=== PATIENT | male | born 1990 | race Caucasian/White ===

== ENCOUNTER 2016-08-27 09:03 | Emergency (ER) | payer SELFPAY ==
[~2016-08-27] VITALS: Ht 185.4 cm; Wt 80.0 kg
[~2016-08-27 09:03] MED LIST: BACTRIM DS1 TAB PO; DONNATA1 OR; DOXYCYCL HYC100 M4 PO; FLEXERIL PO; KEFLEX500 MG PO; LORTAB 10 PO; LORTAB 10-325 M1 TAB PO; LORTAB 5/3255 MG PO; MOTRIN800 MG PO; MULTIVITAM10; NO MEDS; PERCOCET 5/325M1 TAB PO; ULTRAM50 M1 PO; ZOFRAN ODT4 MG PO
[2016-08-27] MEDS ORDERED: TRAMADOL HYDROC50 MG PO (10:13)
[2016-08-27] MEDS ORDERED: MOTRIN800 MG PO (10:13)
[2016-08-27 10:17] VITALS: BP 147/89
== END 2016-08-27 10:26 | disposition home or self-care (01) | DRG 914 ==
LOC: ED 09:03
DX: S46.391A Other injury of muscle, fascia and tendon of triceps, right arm, initial encounter (principal); R22.31 Localized swelling, mass and lump, right upper limb; S50.01XA Contusion of right elbow, initial encounter; W22.8XXA Striking against or struck by other objects, initial encounter; Y93.89 Activity, other specified; Y92.89 Other specified places as the place of occurrence of the external cause

== ENCOUNTER 2016-12-12 09:46 | Emergency (ER) | payer SELFPAY ==
[~2016-12-12] VITALS: Ht 185.4 cm; Wt 94.8 kg
[~2016-12-12 09:46] MED LIST changes: +TRAMADOL HYDROC50 MG PO
[2016-12-12] MEDS ORDERED: MULTIVITAMI1 PO (10:04)
[2016-12-12 10:42] LABS: HEMATOCRIT 43.8 % (39.0-50.0); HEMOGLOBIN 14.9 g/dl (14.0-18.0); IMMATURE GRANULOCYTES 0.1 % (0.0-1.0); MEAN CELL VOLUME 89.4 fL CALC (80.0-100.0); MEAN CORPUSCULAR HGB 30.4 pG CALC (26.0-32.0); NEUT# 4.37 thou/uL (1.82-7.42); RED BLOOD COUNT 4.9 mill/uL (4.70-6.10); RED CELL DISTRI WIDTH 12.6 % (11.5-15.5); URINE BILIRUBIN - DIPSTICK NEGATIVE (NEGATIVE); URINE BLOOD DIPSTICK LARGE (NEGATIVE); URINE CLARITY CLOUDY; URINE COLOR BROWN; URINE GLUCOSE - DIPSTICK NEGATIVE (NEGATIVE); URINE KETONE TRACE mg/dL (NEGATIVE); URINE LEUK ESTERASE NEGATIVE (NEGATIVE); URINE PH 6.5 (4.5-8.0); URINE PROTEIN - DIPSTICK 100 mg/dL (NEG-TRACE); URINE SPECIFIC GRAVITY 1.025
[2016-12-12 10:52] LABS: ALBUMIN 4.6 g/dL (3.2-5.0); ALKALINE PHOSPHATASE 56 u/l (38-126); AMYLASE 52 u/l (30-110); ANION GAP 14 (6-22 (CALC)); BILIRUBIN, TOTAL 0.8 mg/dL (0.0-1.4); BUN 20 mg/dL (9-20); BUN/CREATININE RATIO 21 (12-20 (CALC)); CALCIUM 9.8 mg/dL (8.4-10.2); CARBON DIOXIDE 25 mmol/l (22-30); CHLORIDE 104 mmol/l (95-108); GFR > 60 ML/MIN (>=60 (CALC)); GFR FOR AFR.AMER. > 60 ML/MIN (>=60 (CALC)); GLUCOSE 95 mg/dL (75-110); LIPASE 77 u/l (23-300); SGOT/AST 17 u/l (17-59); SGPT/ALT 28 u/l (21-72); SODIUM 140 mmol/l (137-146); TOTAL PROTEIN 7.3 g/dL (6.3-8.2); URINE NITRITE - DIPSTICK POSITIVE (Negative)
[2016-12-12 10:53] LABS: URINE RBC TNTC RBC/hpf (0-5)
[2016-12-12] MEDS ORDERED: LORTAB 10-325 M1 TAB PO (11:58)
[2016-12-12] MEDS ORDERED: ZOFRAN ODT4 MG PO (11:58)
[2016-12-12] MEDS ORDERED: CIPROFLOXACN500 MG PO (11:58)
[2016-12-12 12:50] VITALS: BP 133/51
== END 2016-12-12 12:51 | disposition home or self-care (01) | DRG 690 ==
LOC: ED 09:46
PROVIDERS: Emergency Medicine
DX: N13.6 Pyonephrosis (principal); F17.210 Nicotine dependence, cigarettes, uncomplicated; R10.31 Right lower quadrant pain; Z87.442 Personal history of urinary calculi
CPT/HCPCS: Q9967

== ENCOUNTER 2017-01-13 11:26 | Emergency (ER) | payer SELFPAY ==
[~2017-01-13] VITALS: Ht 185.4 cm; Wt 95.0 kg
[~2017-01-13 11:26] MED LIST changes: +CIPROFLOXACN500 MG PO; +MULTIVITAMI1 PO
[2017-01-13 11:54] LABS: HEMATOCRIT 43.1 % (39.0-50.0); HEMOGLOBIN 14.4 g/dl (14.0-18.0); IMMATURE GRANULOCYTES 0.3 % (0.0-1.0); MEAN CELL VOLUME 90.5 fL CALC (80.0-100.0); MEAN CORPUSCULAR HGB 30.3 pG CALC (26.0-32.0); MEAN CORPUSCULAR HGB CONC 33.4 g/L CALC (32.0-36.0); NEUT# 3.95 thou/uL (1.82-7.42); RED BLOOD COUNT 4.76 mill/uL (4.70-6.10); RED CELL DISTRI WIDTH 12.7 % (11.5-15.5)
[2017-01-13 12:11] LABS: ALBUMIN 4.5 g/dL (3.2-5.0); ALKALINE PHOSPHATASE 57 u/l (38-126); ANION GAP 15 (6-22 (CALC)); BILIRUBIN, TOTAL 0.5 mg/dL (0.0-1.4); BUN 13 mg/dL (9-20); BUN/CREATININE RATIO 15 (12-20 (CALC)); CALCIUM 9.5 mg/dL (8.4-10.2); CARBON DIOXIDE 25 mmol/l (22-30); CHLORIDE 104 mmol/l (95-108); CREATININE 0.9 mg/dL (0.7-1.3); GFR > 60 ML/MIN (>=60 (CALC)); GFR FOR AFR.AMER. > 60 ML/MIN (>=60 (CALC)); GLUCOSE 105 mg/dL (75-110); POTASSIUM 3.8 mmol/l (3.5-5.1); SGOT/AST 18 u/l (17-59); SGPT/ALT 25 u/l (21-72); SODIUM 141 mmol/l (137-146); TOTAL PROTEIN 7.3 g/dL (6.3-8.2)
[2017-01-13 12:23] LABS: MYOGLOBIN 26 ng/mL (0 - 121)
[2017-01-13] MEDS ORDERED: MOTRIN800 MG PO (12:44)
[2017-01-13 13:11] VITALS: BP 160/84
== END 2017-01-13 13:21 | disposition home or self-care (01) | DRG 313 ==
LOC: ED 11:26
PROVIDERS: Emergency Medicine
DX: R07.9 Chest pain, unspecified (principal)

== ENCOUNTER 2017-03-17 20:17 | Emergency (ER) | payer MEDICAID ==
[~2017-03-17] VITALS: Ht 185.4 cm; Wt 99.4 kg
[2017-03-17 21:20] LABS: HEMATOCRIT 45.7 % (39.0-50.0); HEMOGLOBIN 15.7 g/dl (14.0-18.0); IMMATURE GRANULOCYTES 0.5 % (0.0-1.0); MEAN CELL VOLUME 89.1 fL CALC (80.0-100.0); MEAN CORPUSCULAR HGB 30.6 pG CALC (26.0-32.0); MEAN CORPUSCULAR HGB CONC 34.4 g/L CALC (32.0-36.0); NEUT# 9.44 thou/uL (1.82-7.42); RED BLOOD COUNT 5.13 mill/uL (4.70-6.10); RED CELL DISTRI WIDTH 12.5 % (11.5-15.5); URINE BILIRUBIN - DIPSTICK NEGATIVE (NEGATIVE); URINE BLOOD DIPSTICK LARGE (NEGATIVE); URINE CLARITY CLOUDY; URINE GLUCOSE - DIPSTICK NEGATIVE (NEGATIVE); URINE KETONE NEGATIVE (NEGATIVE); URINE NITRITE - DIPSTICK NEGATIVE (Negative); URINE PH 6.5 (4.5-8.0); URINE PROTEIN - DIPSTICK >=300 mg/dL (NEG-TRACE); URINE SPECIFIC GRAVITY 1.025; URINE UROBILINOGEN - DIPSTICK 0.2 E.U./dL (0.2)
[2017-03-17 21:22] LABS: URINE COLOR AMBER; URINE LEUK ESTERASE SMALL (NEGATIVE)
[2017-03-17 21:27] LABS: URINE RBC >100 RBC/hpf (0-5)
[2017-03-17 21:29] LABS: ALKALINE PHOSPHATASE 65 u/l (38-126); AMYLASE 43 u/l (30-110); ANION GAP 16 (6-22 (CALC)); BILIRUBIN, TOTAL 0.7 mg/dL (0.0-1.4); BUN 14 mg/dL (9-20); BUN/CREATININE RATIO 18 (12-20 (CALC)); CALCIUM 10.4 mg/dL (8.4-10.2); CARBON DIOXIDE 25 mmol/l (22-30); CHLORIDE 102 mmol/l (95-108); CREATININE 0.8 mg/dL (0.7-1.3); GFR > 60 ML/MIN (>=60 (CALC)); GFR FOR AFR.AMER. > 60 ML/MIN (>=60 (CALC)); GLUCOSE 95 mg/dL (75-110); LIPASE 38 u/l (23-300); POTASSIUM 4.4 mmol/l (3.5-5.1); SGOT/AST 18 u/l (17-59); SGPT/ALT 33 u/l (21-72); SODIUM 138 mmol/l (137-146)
[2017-03-17 23:40] VITALS: BP 116/64
--- NOTE | 2017-03-19 13:19 | NUR ---
Review of urine culture from 03/17/17 final showed no growth. Pt presented to ED on 03/17/17 with cc of flank pain. Clinical impression: flank pain, hematuria, mild UTI. Pt received ceftriaxone 1g IV x 1 dose in ED. Pt was not discharged with any abx. No changes in abx tx needed at this time.
== END 2017-03-17 23:40 | disposition home or self-care (01) | DRG 690 ==
LOC: ED 20:17
PROVIDERS: Emergency Medicine
DX: N39.0 Urinary tract infection, site not specified (principal); N20.0 Calculus of kidney; R31.9 Hematuria, unspecified; R10.9 Unspecified abdominal pain; Z87.442 Personal history of urinary calculi; R11.10 Vomiting, unspecified; R50.9 Fever, unspecified; Z96.0 Presence of urogenital implants

== ENCOUNTER 2019-01-27 17:55 | Emergency (ER) | payer SELFPAY ==
[~2019-01-27] VITALS: Ht 185.4 cm; Wt 91.8 kg
[2019-01-27 19:19] LABS: HEMATOCRIT 46.6 % (39.0-50.0); HEMOGLOBIN 15.8 g/dl (14.0-18.0); IMMATURE GRANULOCYTES 0.3 % (0.0-5.0); MEAN CELL VOLUME 90.3 fL CALC (80.0-100.0); MEAN CORPUSCULAR HGB 30.6 pG CALC (26.0-32.0); MEAN CORPUSCULAR HGB CONC 33.9 g/L CALC (32.0-36.0); NEUT# 5.28 thou/uL (1.82-7.42); RED BLOOD COUNT 5.16 mill/uL (4.70-6.10); RED CELL DISTRI WIDTH 12.8 % (11.5-15.5)
[2019-01-27 19:19] LABS: URINE BILIRUBIN - DIPSTICK NEGATIVE (NEGATIVE); URINE BLOOD DIPSTICK LARGE (NEGATIVE); URINE COLOR YELLOW; URINE GLUCOSE - DIPSTICK NEGATIVE (NEGATIVE); URINE KETONE NEGATIVE (NEGATIVE); URINE LEUK ESTERASE NEGATIVE (NEGATIVE); URINE NITRITE - DIPSTICK NEGATIVE (Negative); URINE PROTEIN - DIPSTICK NEGATIVE (NEG-TRACE); URINE SPECIFIC GRAVITY >=1.030; URINE UROBILINOGEN - DIPSTICK 0.2 E.U./dL (0.2)
[2019-01-27 19:41] LABS: URINE RBC TNTC RBC/hpf (0-5); URINE SQUAMOUS EPITHELIAL CELL FEW EPI/hpf (0-FEW)
[2019-01-27 19:44] LABS: ALBUMIN 4.8 g/dL (3.2-5.0); ALKALINE PHOSPHATASE 75 u/l (38-126); ANION GAP 13 (6-22 (CALC)); BILIRUBIN, TOTAL 0.8 mg/dL (0.0-1.4); BUN 32 mg/dL (9-20); BUN/CREATININE RATIO 28 (12-20 (CALC)); CARBON DIOXIDE 28 mmol/l (22-30); CHLORIDE 103 mmol/l (95-108); CREATININE 1.1 mg/dL (0.7-1.3); GFR > 60 ML/MIN (>=60 (CALC)); GFR FOR AFR.AMER. > 60 ML/MIN (>=60 (CALC)); POTASSIUM 4.7 mmol/l (3.5-5.1); SGOT/AST 25 u/l (17-59); SODIUM 139 mmol/l (137-146); TOTAL PROTEIN 7.7 g/dL (6.3-8.2)
[2019-01-27 20:18] VITALS: BP 129/64
== END 2019-01-27 20:18 | disposition home or self-care (01) | DRG 694 ==
LOC: ED 17:55
PROVIDERS: Family Medicine
DX: N13.2 Hydronephrosis with renal and ureteral calculous obstruction (principal); F17.210 Nicotine dependence, cigarettes, uncomplicated; Z87.442 Personal history of urinary calculi

== ENCOUNTER 2019-02-07 09:02 | Emergency (ER) | payer SELFPAY ==
[~2019-02-07] VITALS: Ht 185.4 cm; Wt 93.0 kg
[2019-02-07 10:06] LABS: URINE BILIRUBIN - DIPSTICK NEGATIVE (NEGATIVE); URINE BLOOD DIPSTICK NEGATIVE (NEGATIVE); URINE COLOR YELLOW; URINE GLUCOSE - DIPSTICK NEGATIVE (NEGATIVE); URINE KETONE TRACE mg/dL (NEGATIVE); URINE LEUK ESTERASE NEGATIVE (NEGATIVE); URINE NITRITE - DIPSTICK NEGATIVE (Negative); URINE PH 7.5 (4.5-8.0); URINE PROTEIN - DIPSTICK NEGATIVE (NEG-TRACE); URINE UROBILINOGEN - DIPSTICK 0.2 E.U./dL (0.2)
[2019-02-07 10:06] LABS: HEMATOCRIT 46.9 % (39.0-50.0); HEMOGLOBIN 15.6 g/dl (14.0-18.0); IMMATURE GRANULOCYTES 0.6 % (0.0-5.0); MEAN CELL VOLUME 92.3 fL CALC (80.0-100.0); MEAN CORPUSCULAR HGB 30.7 pG CALC (26.0-32.0); MEAN CORPUSCULAR HGB CONC 33.3 g/L CALC (32.0-36.0); NEUT# 4.54 thou/uL (1.82-7.42); RED BLOOD COUNT 5.08 mill/uL (4.70-6.10); RED CELL DISTRI WIDTH 12.7 % (11.5-15.5)
[2019-02-07 10:20] LABS: ALBUMIN 4.1 g/dL (3.2-5.0); ALKALINE PHOSPHATASE 64 u/l (38-126); ANION GAP 13 (6-22 (CALC)); BILIRUBIN, TOTAL 0.7 mg/dL (0.0-1.4); BUN 15 mg/dL (9-20); BUN/CREATININE RATIO 17 (12-20 (CALC)); CARBON DIOXIDE 27 mmol/l (22-30); CHLORIDE 104 mmol/l (95-108); CREATININE 0.9 mg/dL (0.7-1.3); GFR > 60 ML/MIN (>=60 (CALC)); GFR FOR AFR.AMER. > 60 ML/MIN (>=60 (CALC)); POTASSIUM 4.3 mmol/l (3.5-5.1); SGOT/AST 14 u/l (17-59); SODIUM 140 mmol/l (137-146); TOTAL PROTEIN 7.1 g/dL (6.3-8.2)
[2019-02-07 11:28] VITALS: BP 122/59
== END 2019-02-07 11:34 | disposition home or self-care (01) | DRG 392 ==
LOC: ED 09:02
PROVIDERS: Family Medicine
DX: R10.11 Right upper quadrant pain (principal); R10.31 Right lower quadrant pain; F17.210 Nicotine dependence, cigarettes, uncomplicated; Z87.442 Personal history of urinary calculi